=== PATIENT | female | born 1940 | race Caucasian/White ===

== ENCOUNTER 2023-10-29 10:14 | Inpatient (IN) ==
[2023-10-29] MEDS: HYDROcodone/ACETAMIN 5/325 mg TAB PO ONE (12:37)
[2023-10-29 12:52] LABS: ABS Eosinophils 0.1 10^3/uL (0.0-0.5); ABS Monocytes 0.3 10^3/uL (0.0-0.9); ABS Neutrophils 4.9 10^3/uL (1.5-7.6); Hematocrit 36.5 % (35-45); Lymphocyte % 15.4 %; Mean Corpuscular Hemoglobin 30.4 pg (27-33); Mean Corpuscular Volume 92.2 fL (80-97); Mean Platelet Volume 9.3 fL (7.5-11.2); Platelet Count 117 10^3/uL (150-450); Red Blood Count 3.96 10^6/uL (3.63-4.92); Red Cell Distribution Width 15.6 % (12-17); White Blood Count 6.3 10^3/uL (3.8-11.8)
[2023-10-29 13:38] LABS: Albumin 4.6 g/dL (3.2-5.2); Albumin/Globulin Ratio 1.5 (1-3); Calcium 9.3 mg/dL (8.6-10.3); Creatinine, Serum 1.06 mg/dL (0.51-0.95); Potassium 4.5 mmol/L (3.5-5.0); Total Bilirubin 0.5 mg/dL (0.2-1.0); Total Protein 7.6 g/dL (6.4-8.9); eGFR CKD-EPI 51.5 (>60)
[2023-10-29] MEDS: Ondansetron 4 mg VIAL 2 MG/ML 2 ml VIAL IV ONE (14:20)
[2023-10-29] MEDS: Morphine 4 MG/ML VIAL (1 ml) IV ONE (14:20)
[2023-10-29] MEDS ORDERED: Dextrose 50% Syringe 50 ml 25 GM/50 ML SYRINGE IV PUSH PRN (17:16)
[2023-10-29] MEDS: Heparin 5000 UNITS/ML 1 mL VIAL SUBCUT SCH (19:59)
[2023-10-29] MEDS: HYDROmorphone 1 MG/1 ML SYRINGE IV SLOW PU PRN (21:34)
[2023-10-30 05:33] LABS: ABS Eosinophils 0.1 10^3/uL (0.0-0.5); ABS Lymphocytes 1.2 10^3/uL (1.0-4.8); ABS Monocytes 0.7 10^3/uL (0.0-0.9); ABS Neutrophils 4.4 10^3/uL (1.5-7.6); ABS Nucleated RBC 0.01 10^3/ul; Eosinophil % 1.3 %; Hematocrit 31.9 % (35-45); Hemoglobin 10.9 g/dL (11.5-14.3); Mean Corpuscular Hemoglobin 31.9 pg (27-33); Mean Corpuscular Hgb Conc 34.2 g/dL (31-36); Mean Corpuscular Volume 93.2 fL (80-97); Mean Platelet Volume 9.5 fL (7.5-11.2); Nucleated Red Blood Cells % 0.1 %/100WBC (0.0-0.8); Platelet Count 114 10^3/uL (150-450); Red Blood Count 3.42 10^6/uL (3.63-4.92); Red Cell Distribution Width 16.1 % (12-17); White Blood Count 6.5 10^3/uL (3.8-11.8)
[2023-10-30 05:53] LABS: Calcium 8.8 mg/dL (8.6-10.3); Creatinine, Serum 1.49 mg/dL (0.51-0.95); Potassium 5.3 mmol/L (3.5-5.0); eGFR CKD-EPI 34.2 (>60)
[2023-10-30] MEDS: Sulfur Hexaflouride MICROSPHR 25 MG VIAL IV ONE (07:58)
[2023-10-30] MEDS: NS 0.9% 500 ml BAG 500 ML IV ONE (08:08)
[2023-10-30] MEDS: CMC:Rivastigmine PATCH 9.5 MG(NF) PATCH TRANSDERM SCH (09:41)
[2023-10-30] MEDS: Memantine XR 7 mg CAP PO SCH (09:41)
[2023-10-30] MEDS ORDERED: Propofol 10 MG/ML 20 ML BTL ONE (11:01)
[2023-10-30] MEDS ORDERED: Dexamethasone IV 4 MG/ML VIAL 1 ml VIAL ONE (11:01)
[2023-10-30] MEDS ORDERED: Ondansetron 4 mg VIAL 2 MG/ML 2 ml VIAL ONE (11:01)
[2023-10-30] MEDS ORDERED: Phenylephrine IV 10 MG/ML 1 ml VIAL ONE (11:01)
[2023-10-30] MEDS ORDERED: Lidocaine 2% PF 5 ML VIAL ONE (11:01)
[2023-10-30] MEDS ORDERED: fentaNYL 100 mcg/2 ml 50 MCG/ML VIAL ONE (11:01)
[2023-10-30] MEDS ORDERED: ceFAZolin 2 GM in NS PREMIX 2 GM/100 ML BAG IVPB ONE (11:41)
[2023-10-30 12:41] LABS: Calcium 8.4 mg/dL (8.6-10.3); Creatinine, Serum 1.37 mg/dL (0.51-0.95); Potassium 4.8 mmol/L (3.5-5.0); eGFR CKD-EPI 37.8 (>60)
[2023-10-30] MEDS ORDERED: Acetaminophen IV 1 GM/100ML 1,000 MG/100 ML BAG IV ONE (13:17)
[2023-10-30] MEDS ORDERED: Naloxone 0.4 mg VIAL 0.4 mg/ml 1 ml VIAL IV PRN (13:25)
[2023-10-30] MEDS ORDERED: Ondansetron 4 mg VIAL 2 MG/ML 2 ml VIAL IV PRN (13:25)
[2023-10-30] MEDS ORDERED: fentaNYL 100 mcg/2 ml 50 MCG/ML VIAL IV PRN (13:25)
[2023-10-30] MEDS ORDERED: Bupivacaine 0.25% SDV 30 ML ONE (14:16)
[2023-10-30] MEDS: Lactated Ringers 1000 ml BAG 1,000 ML IV SCH (15:38)
[2023-10-30] MEDS ORDERED: Magnesium Hydroxide LIQ 30 ML UDC PO PRN (15:51)
[2023-10-30] MEDS ORDERED: Polyethylene Glycol 3350 17 GM PACKET PO PRN (15:51)
[2023-10-30] MEDS ORDERED: Senna TAB 8.6 mg TAB PO PRN (15:51)
[2023-10-30] MEDS: Magnesium Hydroxide LIQ 30 ML UDC PO SCH (17:41)
[2023-10-30] MEDS: ceFAZolin 1 GM ADVAN 1 GM in NS 0.9% 50 ML 50 ML IVPB SCH (21:29)
[2023-10-31 06:19] LABS: Calcium 8.3 mg/dL (8.6-10.3); Creatinine, Serum 1.29 mg/dL (0.51-0.95); Potassium 4.9 mmol/L (3.5-5.0); eGFR CKD-EPI 40.7 (>60)
[2023-10-31 06:38] LABS: ABS Lymphocytes 0.7 10^3/uL (1.0-4.8); ABS Monocytes 0.4 10^3/uL (0.0-0.9); ABS Neutrophils 5.8 10^3/uL (1.5-7.6); Hematocrit 24.1 % (35-45); Hemoglobin 8.2 g/dL (11.5-14.3); Lymphocyte % 10.7 %; Mean Corpuscular Hemoglobin 31.5 pg (27-33); Mean Corpuscular Hgb Conc 34.2 g/dL (31-36); Mean Corpuscular Volume 92.1 fL (80-97); Mean Platelet Volume 9.6 fL (7.5-11.2); Platelet Count 81 10^3/uL (150-450); Red Blood Count 2.61 10^6/uL (3.63-4.92); Red Cell Distribution Width 15.4 % (12-17); White Blood Count 6.9 10^3/uL (3.8-11.8)
[2023-10-31] MEDS ORDERED: HYDROmorphone 1 MG/1 ML SYRINGE IV SLOW PU PRN (08:40)
[2023-10-31] MEDS ORDERED: Prochlorperazine 5 mg/ml 2 ml VIAL (10 mg) IV PRN (08:41)
[2023-10-31] MEDS: Enoxaparin 30 MG/0.3 ML SYR SUBCUT SCH (12:17)
[2023-11-01 05:07] LABS: Hematocrit 21.2 % (35-45); Hemoglobin 7.3 g/dL (11.5-14.3)
[2023-11-01 10:38] LABS: Hematocrit 21.8 % (35-45); Hemoglobin 7.4 g/dL (11.5-14.3); Mean Corpuscular Hemoglobin 31.5 pg (27-33); Mean Corpuscular Hgb Conc 33.8 g/dL (31-36); Mean Corpuscular Volume 93.2 fL (80-97); Red Blood Count 2.34 10^6/uL (3.63-4.92); White Blood Count 7.6 10^3/uL (3.8-11.8)
[2023-11-01 11:09] LABS: Creatinine, Serum 1.14 mg/dL (0.51-0.95); Potassium 4.7 mmol/L (3.5-5.0); eGFR CKD-EPI 47.2 (>60)
[2023-11-01 11:42] LABS: ABS Eosinophils 0.1 10^3/uL (0.0-0.5); ABS Lymphocytes 1.4 10^3/uL (1.0-4.8); ABS Monocytes 0.9 10^3/uL (0.0-0.9); ABS Neutrophils 5.2 10^3/uL (1.5-7.6); ABS Nucleated RBC 0.01 10^3/ul; Eosinophil % 1.2 %; Lymphocyte % 18.5 %; Mean Platelet Volume 9.6 fL (7.5-11.2); Nucleated Red Blood Cells % 0.1 %/100WBC (0.0-0.8); Platelet Count 83 10^3/uL (150-450)
[2023-11-02 06:03] LABS: Calcium 8.1 mg/dL (8.6-10.3); Creatinine, Serum 1.01 mg/dL (0.51-0.95); eGFR CKD-EPI 54.6 (>60)
[2023-11-02 07:18] LABS: ABS Eosinophils 0.2 10^3/uL (0.0-0.5); ABS Lymphocytes 1.4 10^3/uL (1.0-4.8); ABS Neutrophils 3.7 10^3/uL (1.5-7.6); ABS Nucleated RBC 0.06 10^3/ul; Eosinophil % 2.5 %; Hematocrit 22.2 % (35-45); Hemoglobin 7.5 g/dL (11.5-14.3); Lymphocyte % 22.8 %; Mean Corpuscular Hemoglobin 31.6 pg (27-33); Mean Corpuscular Hgb Conc 33.7 g/dL (31-36); Mean Corpuscular Volume 93.6 fL (80-97); Mean Platelet Volume 9.3 fL (7.5-11.2); Nucleated Red Blood Cells % 0.9 %/100WBC (0.0-0.8); Platelet Count 98 10^3/uL (150-450); Red Blood Count 2.37 10^6/uL (3.63-4.92); Red Cell Distribution Width 15.7 % (12-17); White Blood Count 6.3 10^3/uL (3.8-11.8)
[2023-11-02] MEDS: Polyethylene Glycol 3350 17 GM PACKET PO SCH (11:38)
[2023-11-02] MEDS: Magnesium Hydroxide LIQ 30 ML UDC PO SCH (11:44)
[2023-11-02 12:38] LABS: Urine Appearance Clear; Urine Bilirubin Negative (Negative); Urine Blood Trace (Negative); Urine Color Light-Yellow; Urine Glucose Trace (Negative); Urine Ketones Negative (Negative); Urine Nitrite Negative (Negative); Urine Protein Trace (Negative); Urine Specific Gravity 1.017 (1.002-1.030); Urine Urobilinogen Negative (Negative); Urine pH 6.5 (5.0-8.0)
[2023-11-02 12:51] LABS: Urine Bacteria Absent /HPF (Absent); Urine Red Blood Cell Trace(0-2/hpf) /HPF (0-Trace); Urine White Blood Cell 1+(6-10/hpf) /HPF (0-Trace)
[2023-11-02] MEDS ORDERED: HYDROmorphone 0.5 MG/0.5 ML SYRINGE IV SLOW PU PRN (17:02)
[2023-11-02 18:56] LABS: Hematocrit 24.9 % (35-45); Hemoglobin 8.2 g/dL (11.5-14.3); Mean Corpuscular Hemoglobin 30.4 pg (27-33); Mean Corpuscular Hgb Conc 32.9 g/dL (31-36); Mean Corpuscular Volume 92.2 fL (80-97); Mean Platelet Volume 9.3 fL (7.5-11.2); Platelet Count 98 10^3/uL (150-450); Red Cell Distribution Width 15.1 % (12-17); White Blood Count 7.1 10^3/uL (3.8-11.8)
[2023-11-02 20:28] LABS: ABS Eosinophils 0.1 10^3/uL (0.0-0.5); ABS Lymphocytes 1.2 10^3/uL (1.0-4.8); ABS Monocytes 0.7 10^3/uL (0.0-0.9); ABS Neutrophils 5.1 10^3/uL (1.5-7.6); ABS Nucleated RBC 0.04 10^3/ul; Eosinophil % 1.7 %; Lymphocyte % 16.6 %; Nucleated Red Blood Cells % 0.6 %/100WBC (0.0-0.8)
[2023-11-03 05:27] LABS: Urine Appearance Clear; Urine Bilirubin Negative (Negative); Urine Blood Negative (Negative); Urine Color Light-Yellow; Urine Glucose 3+ (>=300 mg/dL) (Negative); Urine Ketones Negative (Negative); Urine Nitrite Negative (Negative); Urine Protein Trace (Negative); Urine Urobilinogen Negative (Negative)
[2023-11-03 07:28] LABS: Calcium 8.2 mg/dL (8.6-10.3); Creatinine, Serum 0.9 mg/dL (0.51-0.95); Potassium 4.7 mmol/L (3.5-5.0); eGFR CKD-EPI 62.6 (>60)
[2023-11-03 08:03] LABS: Hematocrit 24.5 % (35-45); Hemoglobin 8.4 g/dL (11.5-14.3); Mean Corpuscular Hemoglobin 31.7 pg (27-33); Mean Corpuscular Hgb Conc 34.3 g/dL (31-36); Mean Corpuscular Volume 92.3 fL (80-97); Red Blood Count 2.66 10^6/uL (3.63-4.92); Red Cell Distribution Width 15.1 % (12-17); White Blood Count 5.5 10^3/uL (3.8-11.8)
[2023-11-03 08:44] LABS: ABS Eosinophils 0.1 10^3/uL (0.0-0.5); ABS Lymphocytes 1.3 10^3/uL (1.0-4.8); ABS Monocytes 0.7 10^3/uL (0.0-0.9); ABS Neutrophils 3.4 10^3/uL (1.5-7.6); ABS Nucleated RBC 0.05 10^3/ul; Eosinophil % 2.2 %; Lymphocyte % 23.7 %; Nucleated Red Blood Cells % 0.9 %/100WBC (0.0-0.8); Platelet Count 99 10^3/uL (150-450); RBC Morphology Normal (Normal)
[2023-11-03] MEDS: Furosemide 20 mg/2 ml IV VIAL IV ONE (14:05)
[2023-11-04 07:52] LABS: Hematocrit 23.5 % (35-45); Hemoglobin 7.8 g/dL (11.5-14.3); Mean Corpuscular Hgb Conc 33.3 g/dL (31-36); Mean Corpuscular Volume 93.1 fL (80-97); Mean Platelet Volume 8.5 fL (7.5-11.2); Platelet Count 123 10^3/uL (150-450); Red Blood Count 2.52 10^6/uL (3.63-4.92); White Blood Count 5.3 10^3/uL (3.8-11.8)
[2023-11-04 08:48] LABS: Calcium 7.9 mg/dL (8.6-10.3); Creatinine, Serum 0.82 mg/dL (0.51-0.95); Potassium 4.6 mmol/L (3.5-5.0); eGFR CKD-EPI 70.1 (>60)
[2023-11-04 09:13] LABS: ABS Eosinophils 0.1 10^3/uL (0.0-0.5); ABS Lymphocytes 1.2 10^3/uL (1.0-4.8); ABS Monocytes 0.6 10^3/uL (0.0-0.9); ABS Neutrophils 3.4 10^3/uL (1.5-7.6); ABS Nucleated RBC 0.04 10^3/ul; Eosinophil % 1.9 %; Lymphocyte % 22.6 %; Nucleated Red Blood Cells % 0.7 %/100WBC (0.0-0.8)
[2023-11-04 10:19] VITALS: BP 134/57
[2023-11-04 12:14] LABS: Rapid COVID-19 Molecular Undetected (Undetected)
== END 2023-11-04 13:55 | DRG 481 ==
LOC: ED 10:14 → EDHOLD 14:37 → SUATTDRO 14:37 → SSU 15:38
PROVIDERS: ADMIT Family Medicine; ATTEND Student in an Organized Health Care Education/Training Program